=== PATIENT | female | born 1960 | race Caucasian/White ===

== ENCOUNTER 2019-04-04 15:08 | Observation (INO) ==
[2019-04-04 15:45] LABS: Basophils % 0.2 %; Hematocrit 40.4 % (35.3-44.9); Hemoglobin 13.9 g/dL (11.5-15.4); Immature Granulocytes % 2.2 % (0-4); Lymphocytes % 5.1 %; Mean Corpuscular HGB Conc 34.4 g/dL (31.6-35.5); Mean Corpuscular Hemoglobin 37.5 pg (28.0-33.3); Mean Corpuscular Volume 108.9 fL (83.0-100.0); Monocytes # 0.5 K/mcL (0.0-1.3); Monocytes % 2.7 %; Nucleated Red Blood Cells 0.1 /100 WBC (0); Platelet Count 334 K/mcL (140-400); Red Blood Count 3.71 M/mcL (3.82-4.97); Red Cell Distribution Width 14.6 % (11.5-14.5); Segmented Neutrophils % 89.8 %; White Blood Count 18.9 K/mcL (4.3-11.1)
[2019-04-04 15:59] LABS: BUN/Creatinine Ratio 51 (6-26); Blood Urea Nitrogen 46 mg/dL (8-23); Calcium 9.9 mg/dL (8.6-10.3); Carbon Dioxide 27 mEq/L (23-29); Chloride 109 mEq/L (98-107); Glucose 156 mg/dL (70-105); Osmolality,Calculated 301 (280-300); Potassium 4.4 mEq/L (3.5-5.1); Sodium 138 mEq/L (136-145); eGFR For African Americans > 60 (> 60); eGFR For Non-African Americans > 60 (> 60)
[2019-04-04 17:02] LABS: Bilirubin,Urine Negative (Negative); Blood,Urine Negative (Negative); Clarity,Urine Clear (Clear); Color,Urine Yellow (Yellow); Glucose,Urine (UA) Normal (Normal); Ketones,Urine Negative (Negative); Leukocyte Esterase,Urine Negative (Negative); Nitrite,Urine Negative (Negative); Protein,Urine 30 mg/dL (Neg-Trace); Urobilinogen,Urine Normal (Normal)
[2019-04-04 17:03] LABS: Bacteria,Urine None Seen per hpf (None-Few); Hyaline Casts,Urine None Seen per lpf (None-Few); Squamous Epithelial Cell,Urine Many per lpf (None-Few); WBC,Urine 0-3 per hpf (0-3)
[2019-04-04] MEDS ORDERED: Fluconazole 400 MG/200 ML 400 MG/200 ML BAG IVPB STA (17:15)
[2019-04-04] MEDS ORDERED: 0.9 % Sodium Chloride 1,000 ML IVC ONE ×2 (17:19)
--- NOTE | 2019-04-04 17:21 | Emergency Department Note ---
Disposition Clinical Impression: Candidal esophagitis, Thrush of mouth and esophagus, Dehydration, Juan disease Disposition: Admitted As Inpatient Condition: Fair Forms: ED Satisfaction Letter, Work/School Release Time of Disposition: 17:20 General Adult HPI - General Chief complaint: ED Abdominal Pain Stated complaint: ABD PAIN/SORE THROAT/EAR PAIN Time Seen by Provider: 04/04/19 16:30 Source: patient Limitations: no limitations - History of Present Illness HPI Narrative: The history, physical exam, and medical decision making was performed by the medical student either while I was physically present and actively involved or I personally re-performed the exam and medical decision making. I have verified the accuracy of the medical student's documentation with regards to the history, physical exam findings, and medical decision making. Patient unable to keep down any liquids today, like it gets stuck in her esophagus and she brings her directly back up. Minimal nausea. This does not sound like vomiting. Was also not able to keep her pain pills down today. Pain Scale: 8 - Related Data Allergies Allergy/AdvReac Type Severity Reaction Status Date / Time Penicillins AdvReac "can't Verified 04/04/19 15:13 walk" All systems ED: reviewed and negative except as stated. Past Medical History - Past Medical History Medical history: Reports: COPD, hypertension, seizures, TIA, other - Social History Smoking Status: Current every day smoker Alcohol use: Reports: none Drug use: Reports: none Physical Exam Vital signs noted, please see nurses notes. General: Well-developed, well-nourished patient lying in bed who appears non- toxic. Head: Atraumatic, normocephalic. Eyes: Sclera anicteric. ENT: Mucous membranes dry. Heart: Regular rate and rhythm without appreciable murmur. Lungs: Normal respiratory pattern without distress, lungs clear to auscultation b/l. Abdomen: Soft, non-tender, non-distended, no guarding or peritoneal signs. Skin: Diffuse purpura with multiple scabs and sores which the patient says is at baseline for her. Neurologic: Awake and alert with normal speech and mental status. Pupils are equal. Moves all extremities equally well. No focal deficits or lateralizing signs. Psychiatric: Mood and affect appropriate. Musculoskeletal: No peripheral edema. No signs of DVT. - General Limitations: no limitations General appearance: alert, in no apparent distress Course Vital Signs Temperature 99.0 F 04/04/19 15:49 Pulse Rate 89 04/04/19 15:49 Respiratory Rate 18 04/04/19 15:49 Blood Pressure 157/76 04/04/19 15:49 O2 Sat by Pulse Oximetry 100 04/04/19 15:49 Temperature 99.0 F 04/04/19 16:31 Pulse Rate 79 04/04/19 16:31 Respiratory Rate 16 04/04/19 16:31 Blood Pressure 174/85 04/04/19 16:31 O2 Sat by Pulse Oximetry 100 04/04/19 16:31 Oxygen Delivery Oxygen Delivery Room Air Medical Decision Making - MDM Narrative Medical decision making narrative: Given her inability to keep anything down today, including liquids and her pills, I have opted for intravenous fluid, so, intravenous fluids, and admission. The hospitalist agrees and is accepted her to his service. - Lab Data Result diagrams: 04/04/19 15:25 04/04/19 15:25 Lab Results 04/04/19 04/04/19 04/04/19 Range/Units 15:25 15:25 16:54 WBC 18.9 H (4.3-11.1) K/mcL RBC 3.71 L (3.82-4.97) M/mcL Hgb 13.9 (11.5-15.4) g/dL Hct 40.4 (35.3-44.9) % MCV 108.9 H (83.0-100.0) fL MCH 37.5 H (28.0-33.3) pg MCHC 34.4 (31.6-35.5) g/dL RDW 14.6 H (11.5-14.5) % Plt Count 334 (140-400) K/mcL MPV 9.0 L (9.4-12.4) fL Immature Gran % 2.2 (0-4) % Seg Neutrophils % 89.8 % Lymphocytes % 5.1 % Monocytes % 2.7 % Eosinophils % 0.0 % Basophils % 0.2 % Neutrophils # 17.0 H (1.6-8.9) K/mcL Lymphocytes # 1.0 (0.6-4.6) K/mcL Monocytes # 0.5 (0.0-1.3) K/mcL Eosinophils # 0.0 (0.0-0.6) K/mcL Basophils # 0.0 (0.0-0.2) K/mcL Nucleated RBCs/100 WBC 0.1 H (0) /100 WBC Sodium 138 (136-145) mEq/L Potassium 4.4 (3.5-5.1) mEq/L Chloride 109 H (98-107) mEq/L Carbon Dioxide 27 (23-29) mEq/L BUN 46 H (8-23) mg/dL Creatinine 0.90 (0.60-1.20) mg/dL Est GFR ( Amer) > 60 (> 60) Est GFR (Non-Af Amer) > 60 (> 60) BUN/Creatinine Ratio 51 H (6-26) Glucose 156 H (70-105) mg/dL Calculated Osmolality 301 H (280-300) Calcium 9.9 (8.6-10.3) mg/dL Urine Color Yellow (Yellow) Urine Clarity Clear (Clear) Urine pH 6.0 (5.0-8.0) pH Units Ur Specific [place] 1.030 H (1.010-1.025) Urine Protein 30 H (Neg-Trace) mg/dL Urine Glucose (UA) Normal (Normal) mg/dL Urine Ketones Negative (Negative) mg/dL Urine Blood Negative (Negative) Urine Nitrite Negative (Negative) Urine Bilirubin Negative (Negative) Urine Urobilinogen Normal (Normal) mg/dL Ur Leukocyte Esterase Negative (Negative) Urine Microscopic RBC 5-15 H (0-3) per hpf Urine Microscopic WBC 0-3 (0-3) per hpf Ur Squamous Epith Cells Many H (None-Few) per lpf Urine Bacteria None Seen (None-Few) per hpf Hyaline Casts None Seen (None-Few) per lpf Ur Culture Indicated? NO (NO)
--- NOTE | 2019-04-04 17:24 | Emergency Department Note ---
Disposition Clinical Impression: Candidal esophagitis, Thrush of mouth and esophagus, Dehydration, Juan disease Disposition: Admitted As Inpatient Condition: Fair Time of Disposition: 17:20 Abdominal Pain HPI - General Chief Complaint: ED Abdominal Pain Stated Complaint: ABD PAIN/SORE THROAT/EAR PAIN Time Seen by Provider: 04/04/19 16:30 Source: patient - History of Present Illness HPI Narrative: Patient is a 58 yo F with PMHx of HTN, COPD, GERD and Juan's disease presenting with abdominal pain and sore throat. She states the abd pain and sore throat both started several days ago. The pain is located in the epigastric region, described as a sharp, burning pain and it does not radiate into her back. She describes her sore throat as worsening over the course of the past sev eral days. The pt has been unable to keep any food down including both solids and liquids. This morning she states she was unable to keep her pain medications down which prompted her to come to the ED. She takes ibuprofen, prednisone, zantac and protonix daily. She admits to SOB, epigastric pain, dysphagia, odynophagia and constipation. She denies fever, chills, nausea, vomiting, chest pain, diarrhea, recent travel or recent illnesses. Onset (ago): day(s) Consistency: constant Location: epigastric Pain Scale: 8 Quality: stabbing, burning Radiation: none Worsens with: eating Associated symptoms: Reports: constipation - Related Data Allergies Allergy/AdvReac Type Severity Reaction Status Date / Time Penicillins AdvReac "can't Verified 04/04/19 15:13 walk" All systems ED: reviewed and negative except as stated. Constitutional: Denies: fever, chills ENT ED: Reports: dysphagia Cardiovascular: Reports: dyspnea on exertion. Denies: chest pain Respiratory: Reports: dyspnea, wheezes. Denies: hemoptysis Gastrointestinal: Reports: abdominal pain, nausea, constipation. Denies: vomiting, diarrhea, hematemesis, hematochezia Genitourinary: Denies: dysuria, hematuria Integumentary: Reports: rash Neurological: Denies: headache Hematological/Lymphatic: Reports: easy bruising Abdominal Pain PMH - Past Medical History Medical history: Reports: COPD, hypertension, seizures, TIA, other ([place]'s Disease) Female Surgical History: Reports: hysterectomy, other - Social History Smoking status: Current every day smoker Alcohol use: Reports: none Drug use: Reports: none Physical Exam - General Limitations: no limitations General appearance: alert, in no apparent distress - Head Head exam: atraumatic, normocephalic - Eye Eye exam: Present: PERRL, EOMI - ENT ENT exam: mucous membranes dry, other (thrush) - Neck Neck exam: Present: tenderness - Respiratory Respiratory exam: Present: wheezes. Absent: respiratory distress - Cardiovascular Cardiovascular exam: Present: regular rate, normal rhythm - Abdominal Exam Abdominal exam: Present: soft, tenderness (epigastric), normal bowel sounds. Absent: distention, guarding, rebound, rigidity Abdominal tenderness: Present: epigastrium - Skin Skin exam: Present: erythema (purpuric rash bilateral UE and LE) Course Vital Signs Temperature 99.0 F 04/04/19 15:49 Pulse Rate 89 04/04/19 15:49 Respiratory Rate 18 04/04/19 15:49 Blood Pressure 157/76 04/04/19 15:49 O2 Sat by Pulse Oximetry 100 04/04/19 15:49 Temperature 99.0 F 04/04/19 16:31 Pulse Rate 79 04/04/19 16:31 Respiratory Rate 16 04/04/19 16:31 Blood Pressure 174/85 04/04/19 16:31 O2 Sat by Pulse Oximetry 100 04/04/19 16:31 Oxygen Delivery Oxygen Delivery Room Air Abdominal Pain - Lab Data Result diagrams: 04/05/19 01:17 04/05/19 01:17 Lab Results 04/04/19 04/04/19 04/04/19 Range/Units 15:25 15:25 16:54 WBC 18.9 H (4.3-11.1) K/mcL RBC 3.71 L (3.82-4.97) M/mcL Hgb 13.9 (11.5-15.4) g/dL Hct 40.4 (35.3-44.9) % MCV 108.9 H (83.0-100.0) fL MCH 37.5 H (28.0-33.3) pg MCHC 34.4 (31.6-35.5) g/dL RDW 14.6 H (11.5-14.5) % Plt Count 334 (140-400) K/mcL MPV 9.0 L (9.4-12.4) fL Immature Gran % 2.2 (0-4) % Seg Neutrophils % 89.8 % Lymphocytes % 5.1 % Monocytes % 2.7 % Eosinophils % 0.0 % Basophils % 0.2 % Neutrophils # 17.0 H (1.6-8.9) K/mcL Lymphocytes # 1.0 (0.6-4.6) K/mcL Monocytes # 0.5 (0.0-1.3) K/mcL Eosinophils # 0.0 (0.0-0.6) K/mcL Basophils # 0.0 (0.0-0.2) K/mcL Nucleated RBCs/100 WBC 0.1 H (0) /100 WBC Sodium 138 (136-145) mEq/L Potassium 4.4 (3.5-5.1) mEq/L Chloride 109 H (98-107) mEq/L Carbon Dioxide 27 (23-29) mEq/L BUN 46 H (8-23) mg/dL Creatinine 0.90 (0.60-1.20) mg/dL Est GFR ( Amer) > 60 (> 60) Est GFR (Non-Af Amer) > 60 (> 60) BUN/Creatinine Ratio 51 H (6-26) Glucose 156 H (70-105) mg/dL Calculated Osmolality 301 H (280-300) Calcium 9.9 (8.6-10.3) mg/dL Urine Color Yellow (Yellow) Urine Clarity Clear (Clear) Urine pH 6.0 (5.0-8.0) pH Units Ur Specific [place] 1.030 H (1.010-1.025) Urine Protein 30 H (Neg-Trace) mg/dL Urine Glucose (UA) Normal (Normal) mg/dL Urine Ketones Negative (Negative) mg/dL Urine Blood Negative (Negative) Urine Nitrite Negative (Negative) Urine Bilirubin Negative (Negative) Urine Urobilinogen Normal (Normal) mg/dL Ur Leukocyte Esterase Negative (Negative) Urine Microscopic RBC 5-15 H (0-3) per hpf Urine Microscopic WBC 0-3 (0-3) per hpf Ur Squamous Epith Cells Many H (None-Few) per lpf Urine Bacteria None Seen (None-Few) per hpf Hyaline Casts None Seen (None-Few) per lpf Ur Culture Indicated? NO (NO)
[2019-04-04] MEDS ORDERED: Ondansetron 4 MG/2 ML VIAL IVP PRN (17:31)
[2019-04-04] MEDS ORDERED: Naloxone 0.4 MG/ML INJ IVP PRN (17:31)
--- NOTE | 2019-04-04 17:52 | Internal Med History&Physical ---
Date of Encounter: 04/04/19 Time of Encounter: 17:30 Internal Medicine - H&P: HPI Chief complaint: Odynophagia Admitted From: Home History of present illness: Ms. Calvin is a 58 year old female with history of ovarian cancer status post op, [place]'s disease on chronic steroids, COPD, hypertension, seizure not on medication, who presented to the ED with chronic history odynophagia. States that she really noted the problem back in October but was acutely worsening over the last several weeks. Associated with dysphagia but denies any abdominal pain, nausea/vomiting, or fever/chills. She does not have any chest pain, palpitation, shortness of breath, cough, sputum production, orthopnea, PND, or leg swelling. Other than multiple hyperpigmented lesions that she has had for months, no new rash noted. Denies any joint pain or swelling. In the ED, she was afebrile and hemodynamically stable. Labwork showed leukocytosis of 18.9. Urinalysis was negative for leukocyte esterase or nitrite. She was started on IV Fluconazole and admitted for further management. Past Med Surg Social Fam HX - Past Medical History Attestation: Yes The following information was validated with the patient. Medical history: cancer, COPD, hypertension, seizures, TIA, other ([place]'s Disease) Additional medical history: Ovarian cancer s/p op. Mark[place]'s disease - Social History Smoking Status: Current every day smoker Alcohol use: none Drug use: none - Additional Family History Additional family history: No family history of endocrinopathy Internal Medicine - H&P: Meds Allergy/AdvReac Type Severity Reaction Status Date / Time Penicillins AdvReac "can't Verified 04/04/19 15:13 walk" All Systems PM: A 10-system review of systems was performed and is negative for pertinent findings except as documented above in the HPI. - Constitutional Vitals: Temp Pulse Resp BP Pulse Ox 99.0 F 79 16 174/85 100 04/04/19 16:31 04/04/19 16:31 04/04/19 16:31 04/04/19 16:31 04/04/19 16:31 Exam: General: Alert and oriented, not in acute distress. HEENT: Visualized oropharynx and oral mucosa with white plaques. EOMI, pupils equal, round and reactive. Cardiovascular:Normal S1 & S2, No JVD. Pulse regular. Lungs: clear to auscultation, no wheezes/rales Abdomen:Soft, non-tender, no rigidity. Extremities:No deformity or swelling Neurological:Normal cognition and motor skills. Non-focal Skin: Multiple, discrete hyperpigmented lesions noted on all 4 extremities Pulses:Carotid and radial pulses normal +2. Rest of the physical exam is non contributory Internal Med - H&P Results - Labs CBC & Chem 7: 04/04/19 15:25 04/04/19 15:25 Labs: Short CBC 04/04/19 Range/Units 15:25 WBC 18.9 H (4.3-11.1) K/mcL Hgb 13.9 (11.5-15.4) g/dL Hct 40.4 (35.3-44.9) % Plt Count 334 (140-400) K/mcL Neutrophils # 17.0 H (1.6-8.9) K/mcL BMP 04/04/19 15:25 Sodium 138 Potassium 4.4 Chloride 109 H Carbon Dioxide 27 BUN 46 H Creatinine 0.90 Glucose 156 H Calcium 9.9 Urine 04/04/19 Range/Units 16:54 Urine Color Yellow (Yellow) Urine Clarity Clear (Clear) Urine pH 6.0 (5.0-8.0) pH Units Ur Specific [place] 1.030 H (1.010-1.025) Urine Protein 30 H (Neg-Trace) mg/dL Urine Glucose (UA) Normal (Normal) mg/dL - Assessment and Plan (1) Oropharyngeal candidiasis Current Visit: Yes Status: Acute Assessment and plan: Presents with acute on chronic odynophagia in a patient on chronic steroid exam shows white plaques on oral mucosa as well as visualized oropharynx Loaded with IV fluconazole, will continue IV 200 mg daily topical lidocaine CLD check HSV and HIV serology If patient's symptoms remain refractory, will consult GI for direct visualization (2) [place] disease Current Visit: Yes Status: Chronic Assessment and plan: resume home dose of Prednisone 5mg (3) COPD (chronic obstructive pulmonary disease) Current Visit: Yes Status: Chronic Assessment and plan: Not in exacerbation, when necessary DuoNeb Qualifiers: COPD type: unspecified COPD Qualified Code(s): J44.9 - Chronic obstructive pulmonary disease, unspecified (4) HTN (hypertension) Current Visit: Yes Status: Chronic Assessment and plan: resume home meds once reconciled PRN labetalol Qualifiers: Hypertension type: unspecified Qualified Code(s): I10 - Essential (primary) hypertension (5) Seizure Current Visit: Yes Status: Chronic Assessment and plan: states that she no longer takes meds - Time Spent With Patient Total time spent is greater than 50% in coordination of care (as documented) at patient's floor/unit and/or counseling patient: 25 - 35 minutes
[2019-04-04] MEDS ORDERED: *HR* Labetalol 20 MG/4 ML SYRINGE IVP PRN (17:55)
[2019-04-04] MEDS ORDERED: Ipratropium/Albuterol Neb 3 ML IH PRN (17:55)
[2019-04-04] MEDS: traMADol 50 MG TABLET PO PRN (23:22)
[2019-04-04] MEDS: Ringers Solution, Lactated 1,000 ML IVC SCH (23:22)
[2019-04-04] MEDS: Lidocaine Viscous Oral Soln 15 ML SOLUTION MM SCH (23:23)
[2019-04-05 02:04] LABS: Basophils % 0.3 %; Eosinophils % 0.1 %; Hematocrit 34.1 % (35.3-44.9); Immature Granulocytes % 2.2 % (0-4); Lymphocytes # 2.1 K/mcL (0.6-4.6); Lymphocytes % 13.8 %; Mean Corpuscular HGB Conc 33.4 g/dL (31.6-35.5); Mean Corpuscular Hemoglobin 36.5 pg (28.0-33.3); Mean Corpuscular Volume 109.3 fL (83.0-100.0); Monocytes # 0.8 K/mcL (0.0-1.3); Monocytes % 5.2 %; Neutrophils # 11.7 K/mcL (1.6-8.9); Platelet Count 276 K/mcL (140-400); Red Blood Count 3.12 M/mcL (3.82-4.97); Red Cell Distribution Width 14.6 % (11.5-14.5); Segmented Neutrophils % 78.4 %; White Blood Count 14.9 K/mcL (4.3-11.1)
[2019-04-05 02:06] LABS: Hemoglobin 11.4 g/dL (11.5-15.4)
[2019-04-05 02:11] LABS: BUN/Creatinine Ratio 53 (6-26); Blood Urea Nitrogen 36 mg/dL (8-23); Calcium 8.6 mg/dL (8.6-10.3); Carbon Dioxide 24 mEq/L (23-29); Chloride 113 mEq/L (98-107); Glucose 98 mg/dL (70-105); Osmolality,Calculated 286 (280-300); Potassium 3.9 mEq/L (3.5-5.1); Sodium 134 mEq/L (136-145); eGFR For African Americans > 60 (> 60); eGFR For Non-African Americans > 60 (> 60)
[2019-04-05] MEDS: traMADol 50 MG TABLET PO PRN ×2 (05:27→09:35)
[2019-04-05] MEDS: Ringers Solution, Lactated 1,000 ML IVC SCH (07:43)
[2019-04-05] MEDS ORDERED: predniSONE 5 MG TABLET PO SCH (09:00)
[2019-04-05] MEDS ORDERED: Fluconazole 200 MG/100 ML 200 MG/100 ML BAG IVPB SCH (09:00)
[2019-04-05] MEDS ORDERED: amLODIPine 5 MG TABLET PO SCH (09:00)
[2019-04-05] MEDS: Lidocaine Viscous Oral Soln 15 ML SOLUTION MM SCH (09:31)
--- NOTE | 2019-04-05 10:28 | Internal Med Progress Note ---
Hospitalist Progress Note - Encounter Date of Encounter: 04/05/19 Time of Encounter: 09:15 - Subjective Interval History: Reports that her odynophasia is better controlled with topical lidocaine. No chest pain, SOB, or fever/chills. - Exam Vitals: Temp Pulse Resp BP Pulse Ox 98.1 F 79 18 158/84 99 04/05/19 07:34 04/05/19 07:34 04/05/19 07:34 04/05/19 07:34 04/05/19 07:34 Exam: General: Alert and oriented, not in acute distress. HEENT: Visualized oropharynx and oral mucosa with white plaques. Cardiovascular:Normal S1 & S2, No JVD. Pulse regular. Lungs: clear to auscultation, no wheezes/rales Abdomen:Soft, non-tender, no rigidity. Neurological:Normal cognition and motor skills. Non-focal Skin: Multiple, discrete hyperpigmented lesions noted on all 4 extremities - Assessment and Plan (1) Oropharyngeal candidiasis Current Visit: Yes Status: Acute Assessment and Plan: Presents with acute on chronic odynophagia in a patient on chronic steroid exam shows white plaques on oral mucosa as well as visualized oropharynx Loaded with IV fluconazole, continue IV 200 mg daily torelated clears well with topical lidocaine, will advance to full liquid today HSV and HIV serology pending If patient's symptoms remain refractory, will consult GI for direct visualization (2) Juan disease Current Visit: Yes Status: Chronic Assessment and Plan: resume home dose of Prednisone 5mg (3) COPD (chronic obstructive pulmonary disease) Current Visit: Yes Status: Chronic Assessment and Plan: Not in exacerbation, when necessary DuoNeb (4) HTN (hypertension) Current Visit: Yes Status: Chronic Assessment and Plan: start norvasc 5mg QD PRN labetalol (5) Seizure Current Visit: Yes Status: Chronic Assessment and Plan: states that she no longer takes meds DVT Prophylaxis: EPCD - Time Spent with Patient Total time spent is greater than 50% in coordination of care (as documented) at patient's floor/unit and/or counseling patient: 25 - 35 minutes Plan of Care Discussed with: patient Internal Medicine: Result - Labs CBC & Chem 7: 04/05/19 01:17 04/05/19 01:17 Labs: Short CBC 10/04/19 10/05/19 Range/Units 15:25 01:17 WBC 18.9 H 14.9 H (4.3-11.1) K/mcL Hgb 13.9 11.4 L D (11.5-15.4) g/dL Hct 40.4 34.1 L (35.3-44.9) % Plt Count 334 276 (140-400) K/mcL Neutrophils # 17.0 H 11.7 H (1.6-8.9) K/mcL BMP 04/04/19 04/05/19 15:25 01:17 Sodium 138 134 L Potassium 4.4 3.9 Chloride 109 H 113 H Carbon Dioxide 27 24 BUN 46 H 36 H Creatinine 0.90 0.68 Glucose 156 H 98 Calcium 9.9 8.6 Urine 04/04/19 Range/Units 16:54 Urine Color Yellow (Yellow) Urine Clarity Clear (Clear) Urine pH 6.0 (5.0-8.0) pH Units Ur Specific [place] 1.030 H (1.010-1.025) Urine Protein 30 H (Neg-Trace) mg/dL Urine Glucose (UA) Normal (Normal) mg/dL Consult Discharge Plan - Plan Referrals: Gail Moseley MD [Primary Care Provider] - (3) COPD (chronic obstructive pulmonary disease) Qualifiers: COPD type: unspecified COPD Qualified Code(s): J44.9 - Chronic obstructive pulmonary disease, unspecified (4) HTN (hypertension) Qualifiers: Hypertension type: unspecified Qualified Code(s): I10 - Essential (primary) hypertension
[2019-04-05 11:55] VITALS: BP 168/82
[2019-04-05] MEDS ORDERED: Nystatin SUSP 5 ML UD.LIQ PO SCH (13:00)
--- NOTE | 2019-04-05 14:47 | Discharge Summary ---
- NOTES TO OUTPATIENT PROVIDER Notes to Outpatient Provider: LEft AMA Orders not resulted at time of discharge: Pending orders 04/05/19 01:17 HSV 1 & 2 Glycoprotein G IgG AM 0400 Date of Encounter: 04/05/19 Time of Encounter: 14:00 - Discharge Diagnosis (1) Oropharyngeal candidiasis Priority: Primary Status: Acute (2) [place] disease Priority: Secondary Status: Chronic (3) COPD (chronic obstructive pulmonary disease) Priority: Secondary Status: Chronic Qualifiers: COPD type: unspecified COPD Qualified Code(s): J44.9 - Chronic obstructive pulmonary disease, unspecified (4) HTN (hypertension) Priority: Secondary Status: Chronic Qualifiers: Hypertension type: unspecified Qualified Code(s): I10 - Essential (primary) hypertension (5) Seizure Priority: Secondary Status: Chronic Hospital course: Ms. Calvin is a 58 year old female with history of ovarian cancer status post op, [place]'s disease on chronic steroids, COPD, hypertension, seizure not on medication, who was admitted for oropharyngeal candidiasis. There was also a concern for esophageal candidiasis and she was started on IV fluconazole and topical lidocaine. The initial plan was to observe her on IV diflucan and determine the need for EGD but pt decided to sign out AMA as she has "lots of chores to take care of at home". She was advised on the risk of worsening infection, sepsis, and potential but adamantly requested to leave. HIV, HSV serology was pending at the time of discharge. She was given 12 day course of PO fluconazole and was advised to follow up with GI if necessary. Discharge discussed with: patient, nurse - Time Spent with Patient Total time spent providing and/or coordinating discharge services: 34 mins - Discharge Medications Prescriptions: New Fluconazole [Diflucan] 200 mg PO DAILY 12 Days #24 tablet Lidocaine Viscous Oral Soln 15 ml MM BID #1 solution amLODIPine [Norvasc] 5 mg PO DAILY #30 tablet Continued HYDROcodone/Acet 10/325 mg [[place] 10-325 mg] 1 unit PO QID Tramadol HCl [Ultram] 50 mg PO QID Buspirone HCl [Buspar] 30 mg PO BID Duloxetine HCl [Cymbalta] 60 mg PO DAILY Ibuprofen [Motrin] 800 mg PO BID Home Medications: Buspirone HCl [Buspar] 30 mg PO BID 04/04/19 [History] Duloxetine HCl [Cymbalta] 60 mg PO DAILY 04/04/19 [History] HYDROcodone/Acet 10/325 mg [[place] 10-325 mg] 1 unit PO QID 04/04/19 [History] Ibuprofen [Motrin] 800 mg PO BID 04/04/19 [History] Tramadol HCl [Ultram] 50 mg PO QID 04/04/19 [History] Fluconazole [Diflucan] 200 mg PO DAILY 12 Days #24 tablet 04/05/19 [Rx] Lidocaine Viscous Oral Soln 15 ml MM BID #1 solution 04/05/19 [Rx] amLODIPine [Norvasc] 5 mg PO DAILY #30 tablet 04/05/19 [Rx] Allergies/Adverse Reactions: Allergy/AdvReac Type Severity Reaction Status Date / Time Penicillins AdvReac "can't Verified 04/04/19 15:13 walk" Date of admission: 04/04/19 18:11 Primary care physician: Gail Moseley - Constitutional Vitals: Temp Pulse Resp BP Pulse Ox 98.1 F 69 18 168/82 97 04/05/19 11:55 04/05/19 11:55 04/05/19 11:55 04/05/19 11:55 04/05/19 11:55 Exam: General: Alert and oriented, not in acute distress. HEENT: Visualized oropharynx and oral mucosa with white plaques. Cardiovascular:Normal S1 & S2, No JVD. Pulse regular. Lungs: clear to auscultation, no wheezes/rales Abdomen:Soft, non-tender, no rigidity. Neurological:Normal cognition and motor skills. Non-focal Skin: Multiple, discrete hyperpigmented lesions noted on all 4 extremities - Patient Status Disposition: Left Against Medical Advice Condition: Fair - Discharge Instructions Instructions: Chronic Obstructive Pulmonary Disease (DC), Chronic Hypertension (DC) Follow Up With: Gail Moseley MD [Primary Care Provider] -
[2019-04-07 08:36] LABS: HSV 2 Glycoprotein G IgG 0.11 IV (<=0.90)
== END 2019-04-05 15:05 | disposition left against medical advice (07) ==
LOC: EMEROOARM 15:08 → 3ANU 15:08 → SUATTDRO 18:11 → 3ANU 18:50
PROVIDERS: ADMIT Internal Medicine; ATTEND Internal Medicine